=== PATIENT | female | born 1995 | race Caucasian/White ===

== ENCOUNTER 2017-07-24 15:35 | Emergency (ER) | payer OTHER ==
[~2017-07-24] VITALS: Ht 152.4 cm; Wt 63.5 kg
[2017-07-24 15:48] VITALS: BP 120/61
--- NOTE | 2017-07-24 15:54 | NUR ---
PT SENT TO LOBBY TO WAIT FOR A BED. UA COLLECTED.
--- NOTE | 2017-07-24 18:39 | NUR ---
PT AMBULATED TO BED 3.
--- NOTE | 2017-07-24 18:45 | NUR ---
PATIENT PRESENT TO ED WITH COMPLAINTS OF DIZZINESS AND WEAKNESS. PATIENT STATES SHE ALMOST PASSED OUT EARLIER TODAY AND IS HAVING CRAMPING AND SPOTTING. DENIES N/V/D; SKIN IS PINK/WARM/DRY; AAOX4 WITH EVEN AND STEADY GAIT; LUNGS CLEAR BL; HR EVEN AND REGULAR; PT DENIES ANY FEVER, CP, SOB, OR COUGH AT THIS TIME; PATIENT STATES PAIN OF 5/10 AT THIS TIME; VSS; PATIENT POSITIONED FOR COMFORT; HOB ELEVATED; BEDRAILS UP X1; BED DOWN. ER MD MADE AWARE OF PT STATUS.
[2017-07-24 19:25] VITALS: BP 120/61
--- NOTE | 2017-07-24 19:25 | NUR ---
Patient discharged with v/s stable. Written and verbal after care instructions given and explained. Patient verbalized understanding. Ambulatory with steady gait. All questions addressed prior to discharge. Advised to follow up with PMD.
== END 2017-07-24 19:25 | disposition home or self-care (01) ==
LOC: MED 15:35
DX: R53.1 Weakness (principal); R55 Syncope and collapse; N93.9 Abnormal uterine and vaginal bleeding, unspecified
CPT/HCPCS: 81002; 81025; 82948; 99282

== ENCOUNTER 2018-09-28 21:01 | Emergency (ER) | payer OTHER ==
[~2018-09-28] VITALS: Ht 152.4 cm; Wt 62.1 kg
[2018-09-28 21:26] VITALS: BP 125/74
--- NOTE | 2018-09-28 21:29 | NUR ---
EKG PERFORMED IN BED 7 WITH FAMILY MEMBER PRESENT
--- NOTE | 2018-09-28 21:31 | NUR ---
TRIAGE COMPLETE. OKAY TO WAIT IN LOBBY PER ER MD ZHANG.
--- NOTE | 2018-09-28 21:43 | NUR ---
PT TAKEN TO XRAY FROM [facility]
--- NOTE | 2018-09-28 21:53 | NUR ---
PT AMBULATED TO BED 03.
--- NOTE | 2018-09-28 22:08 | NUR ---
PATIENT PRESENTS TO ED WITH CHEST PAIN FOR TWO DAYS, DENIES N/V/D; SKIN IS PINK/WARM/DRY; AAOX4 WITH EVEN AND STEADY GAIT; LUNGS CLEAR BL; HR EVEN AND REGULAR; PT DENIES ANY FEVER, SOB, OR COUGH AT THIS TIME; PATIENT STATES PAIN OF 6/10 AT THIS TIME; VSS; PATIENT POSITIONED FOR COMFORT; HOB ELEVATED; BEDRAILS UP X2; BED DOWN. ER MD MADE AWARE OF PT STATUS.
--- NOTE | 2018-09-28 23:02 | NUR ---
Dr. Overton examining patient.
[2018-09-28 23:16] VITALS: BP 122/68
--- NOTE | 2018-09-28 23:17 | NUR ---
Patient discharged with v/s stable. Written and verbal after care instructions given and explained. Patient alert, oriented and verbalized understanding of instructions. Ambulatory with steady gait. All questions addressed prior to discharge. ID band removed. Patient advised to follow up with PMD. Rx of ATARX AND MOTRIN given. Patient educated on indication of medication including possible reaction and side effects. Opportunity to ask questions provided and answered.
== END 2018-09-28 23:17 | disposition home or self-care (01) ==
LOC: MED 21:01
DX: F41.9 Anxiety disorder, unspecified (principal)
CPT/HCPCS: 71045; 81002; 81025; 93005; 99283